=== PATIENT | female | born 1985 | race Caucasian/White ===

== ENCOUNTER 2023-10-22 14:27 | Outpatient (OUT) | payer OTHER, SELFPAY | END 2023-10-22 14:28 | disposition home or self-care (01) | LOC: PST 14:30 | PROVIDERS: PCP Family Medicine; Visit Provider Obstetrics & Gynecology | DX: Z01.818 Encounter for other preprocedural examination (principal); N92.1 Excessive and frequent menstruation with irregular cycle; R10.2 Pelvic and perineal pain ==

== ENCOUNTER 2023-11-05 08:33 | Day surgery (SDC) | payer OTHER, SELFPAY ==
[2023-10-22 14:54] VITALS: BP 111/70; PULSE 69; RESP 16; TEMP 36.4; O2SAT 99; BMI 21.7
[2023-11-05] VITALS (8 sets, daily range): BP systolic 90–120; BP diastolic 50–82; PULSE 60–102; RESP 12–20; TEMP 36.3–36.4; O2SAT 97–100; BMI 23.0
--- OUTSIDE RECORDS SUMMARY | 2023-11-05 08:36 | XMS_ITS | CCD ---
Author Organization [facility] Care Team Providers Care Admissions Clerk Name Role Phone SIMEON DUMONT Referring Unavailab Katya Bright Admitting Unavailable Ambrose Katya Attending Unavailable MAGALIS GARDNER Primary Care Unavailable MAGALIS GARDNER Referring Unavailable Melvin Cote Primary Care Physician CHAD ., DR MCRAE Primary Care Unavailabl e NILL ., DR RODRIGUEZ Admitting Unavailable NILL ., DR RODRIGUEZ Consulting Unavailable NILL ., DR RODRIGUEZ Attending Unavailable BARRETT II, YESY Consulting Unavailable HUE ROMERO Consulting Unavailable KARASIK ., DR MCRAE Attending Unavailabl e KARASIK ., DR MCRAE Admitting Unavailabl e KARASIK ., DR MCRAE Primary Care Unavailabl e KARASIK ., DR MCRAE Consulting Unavailabl e KARASIK ., DR MCRAE Consulting Unavailabl e KARASIK ., DR MCRAE Attending Unavailabl e KARASIK ., DR MCRAE Admitting Unavailabl e KARASIK ., DR MCRAE Primary Care Unavailabl e KARASIK ., DR MCRAE Attending Unavailabl e KARASIK ., DR MCRAE Admitting Unavailabl e KARASIK ., DR MCRAE Primary Care Unavailabl Almas Hernandez Attending Unavailable Almas TENORIO Attending Unavailable Melvin Cote Referring Unavailable Almas TENORIO Attending Unavailable Melvin Cote Referring Unavailable Almas TENORIO Attending Unavailable Melvin Cote MD Primary Care Provider [phone] ALFA LÓPEZ Attending Unavailable ALFA LÓPEZ Attending Unavailable Allergies Allergy Classification Reported Allergen(s) Allergy Type Date of Onset Reaction(s) Facility (1 source) No Known Medication Allergies; Translations: [No Known Medication Allergies] Propensity to adverse reactions (disorder) [facility] Repository Medications Current Medications Medication Drug Class(es) Dates Sig (Normalized) Sig (Original) cyclobenzaprine hydrochloride 10 mg oral tablet (2 sources) Muscle Relaxant Start: 12-02-2022 cyclobenzaprine (Flexeril) 10 MG tablet Start: 11-06-2022 take 1 tablet by yessy th three times daily as needed for muscle spasms cyclobenzaprine 10 mg Tab 10 mg = 1 tab(s), Oral, TID, PRN for spasm, Refills(s) 0 Start Date: 11/06/22 Status: Ordered gabapentin 100 mg oral capsule (2 sources) Anti-epileptic Agent Start: 12-02-2022 take 1 capsule by mouth three times daily gabapentin (Neurontin) 100 MG capsule Take 1 capsule 3 times a day by oral route. 0 12/02/2022 Active Start: 11-06-2022 take 1 capsule by mo uth three times daily gabapentin 100 mg Cap 100 mg = 1 cap(s), Oral, TID, Refills(s) 0 Start Date: 11/06/22 Status: Ordered Lactulose (1 source) Osmotic Laxative Start: 11-06-2022 take 20 g by mouth twice daily lactulose 20 g/30 mL Oral Syrup 20 gm, Oral, BID, Refills(s) 0 Start Date: 11/06/22 Status: Ordered methadone hydrochloride 10 mg oral tablet (2 sources) Opioid Agonist Start: 11-06-2022 methadone 10 m g Tab as directed, Refills(s) 0 Start Date: 11/06/22 Status: Ordered methadone (Dolop christen) 10 MG tablet Take 135 mg by mouth in the morning. 0 Active methylphenidate hydrochloride 5 mg oral tablet (2 sources) Central Nervous System Stimulant Start: 07-28-2023 methylphenidate (Ritalin) 5 MG tablet Start: 11-06-2022 take 1 tablet by yessy th twice daily Ritalin 5 mg oral tablet 5 mg = 1 tab(s), Oral, BID, Refills(s) 0 Start Date: 11/06/22 Status: Ordered Problems Active Problems Problem Classification Problem Date Documented Da te Episodic/Chronic Attention-deficit, conduct, and disruptive behavior disorders (1 source) Attention deficit hyperactivity disorder 11-06-2022 Chronic Cancer of ovary (1 source) Malignant tumor of ovary 11-06-2022 Chronic Cancer of ovary (1 source) Personal history of malignant neoplasm of ovary; Translations: [PERSONAL HX MALIG NEOPLASM OVARY] Onset: 12-22-2022 Episodic Female infertility (2 sources) Female infertility, unspecified; Translations: [Female infertility, unspecified] Onset: 12-19-2018 Chronic Gastrointestinal hemorrhage (6 sources) Hemorrhage of rectum and anus; Translations: [Hemorrhage of anus and rectum] Onset: 11-20-2022 Episodic Menstrual disorders (2 sources) Menometrorrhagia; Translations: [Excessive and frequent menstruation with irregular cycle] Onset: 02-23-2023 09-10-2023 Chronic Other gastrointestinal disorders (2 sources) Other constipation; Translations: [Other constipation] Onset: 11-20-2022 Episodic Other gastrointestinal disorders (1 source) Chronic constipation 11-20-2022 Episodic Other nutritional; endocrine; and metabolic disorders (1 source) Overweight in adulthood with body mass index of 25 or more but less than 30 11-20-2022 Episodic Spondylosis; intervertebral disc disorders; other back problems (1 source) Prolapsed lumbar intervertebral disc 11-06-2022 Chronic Substance-related disorders (1 source) Opioid abuse 11-06-2022 Chronic Past or Other Problems Problem Classification Problem Date Documented Date Episodic/Chronic Administrative/social admission (1 source) Counseling procedure with explicit context; Translations: [Other specified counseling] Onset: 02-23-2023 02-23-2023 Episodic Immunizations and screening for infectious disease (1 source) Encounter for screening for human papillomavirus (HPV); Translations: [ENC SCREENING HUMAN PAPILLOMAVIRUS] Onset: 08-27-2022 Episodic Other screening for suspected conditions (not mental disorders or infectious disease) (8 sources) Encounter for screening for malignant neoplasm of cervix; Translations: [Encounter for screening for diabetes mellitus] Onset: 12-30-2021 Episodic Spondylosis; intervertebral disc disorders; other back problems (1 source) Chronic low back pain Onset: 08-03-2019 11-06-2022 Episodic Results Test Name Value Interpretation Reference Range Facility Pathology Noteon 12-21-2022 Pathology Note [id number] .[id number]:127 Normal [facility] Outside Colonoscopyon 2022 Outside Colonoscopy [id number] .00CD:127 Normal [facility] DRUG SCREEN RAPID (URINE)on 12-16-2022 AMP Negative Normal NEGATIVE [facility] Comment on above: Performed By: #### D RUGRPD #### [facility] [address] [place] [address] Dr. Ruiz Abdul BAR Negative Normal NEGATIVE [facility] Comment on above: Performed By: #### D RUGRPD #### [facility] [address] [place] [address] Dr. uRiz Abdul BUP Negative Normal NEGATIVE [facility] Comment on above: Performed By: #### D RUGRPD #### [facility] [address] [place] [address] Dr. Ruiz Abdul BZO Negative Normal NEGATIVE [facility] Comment on above: Performed By: #### D RUGRPD #### [facility] [address] [place] [address] Dr. Ruiz Abdul MILTON Positive Abnormal NEGATIVE [facility] Comment on above: Performed By: #### D RUGRPD #### [facility] [address] [place] [address] Dr. Ruiz Abdul CUT-OFFS SEE BELOW Normal [facility] Comment on above: Result Comment: AMP (Amphetamine): 500ng/mL, BAR (Barbituates): 200 ng/mL, BZO (Benzodiazepines): 150 ng/mL, BUP (Buprenorphine): 10 ng/mL, MILTON (Cocaine): 150 ng/mL, mAMP (Methamphetamine): 500 ng/mL, MTD (Methadone): 200 ng/mL, OPI (Opiates): 100 ng/mL, OXY (Oxycodone): 100 ng/mL, PCP (Phencyclidine): 25 ng/mL, PPX (Propoxyphene): 300 ng/mL, THC (Cannabinoids): 50 ng/mL, TCA (Trycyclic Antidepressants): 300 ng/mL Performed By: #### D RUGRPD #### [facility] [address] [place] [address] Dr. Ruiz Abdul DRUG CUT HEADER DRUG CLASS TEST SYSTEM CUT-OFF CONCENTRATIONS ARE FOLLOWS: Normal [facility] Comment on above: Performed By: #### D RUGRPD #### [facility] [address] [place] [address] Dr. Ruiz Abdul mAMP Negative Normal NEGATIVE [facility] Comment on above: Performed By: #### D RUGRPD #### [facility] [address] [place] [address] Dr. Ruiz Abdul MTD Positive Abnormal NEGATIVE [facility] Comment on above: Performed By: #### D RUGRPD #### [facility] [address] [place] [address] Dr. Ruiz Abdul OPI Negative Normal NEGATIVE [facility] Comment on above: Performed By: #### D RUGRPD #### [facility] [address] [place] [address] Dr. Ruiz Abdul OXY Negative Normal NEGATIVE [facility] Comment on above: Performed By: #### D RUGRPD #### [facility] [address] [place] [address] Dr. Ruiz Abdul PCP Negative Normal NEGATIVE [facility] Comment on above: Performed By: #### D RUGRPD #### [facility] [address] [place] [address] Dr. Ruiz Abdul PPX Negative Normal NEGATIVE [facility] Comment on above: Performed By: #### D RUGRPD #### [facility] [address] [place] [address] Dr. Ruiz Abdul TCA Negative Normal NEGATIVE [facility] Comment on above: Performed By: #### D RUGRPD #### [facility] [address] [place] [address] Dr. Ruiz Abdul THC Negative Normal NEGATIVE [facility] Comment on above: Performed By: #### D RUGRPD #### [facility] [address] [place] [address] Dr. Ruiz Abdul PREG HCG QUALon 12-16-2022 , QUAL Negative Normal NEGATIVE [facility] Comment on above: Performed By: #### P REG #### [facility] [address] [place] [address] Dr. Ruiz Abdul Consent for Procedure/Surger yon 11-23-2022 Consent for Procedure/Surgery [id number]:127 [facility] Pre-Certification Formon Pre-Certification Form [id number] 1.00CD:127 [facility] Provider Letteron 10-30-2022 Provider Letter October 30, 2022 KATT MORRIS [address] [place] [phone] KATT MORRIS 1985 Dear Katt _ , We have been trying to reach you with no success. It is important that you return our call regarding your referral from Dr. Cote upon receiving this letter. Also, at the time of your call, please provide us with your current information. Thank you for your prompt attention to this matter. Sincerely, General Surgery [place] [phone] [facility] Physician Referralon 023 Physician Referral [id number] .[id number]:127 [facility] PAP ACOG PANEL 2: 30 to 65on 08-31-2022 . . Normal [facility] Comment on above: Result Comment: Perf ormed at: WB Performed By: #### [id number] #### [facility] [address] [place] [address] Dr. Ruiz Abdul Age Gdln ACOG Testing 30-65 Normal [facility] Comment on above: Performed By: #### 4 [id number] #### [facility] [address] [address] [address] Ruiz Abdul DIAGNOSIS: Comment Normal [facility] Comment on above: Result Comment: NEGA TIVE FOR INTRAEPITHELIAL LESION OR MALIGNANCY. Performed at: WB Performed By: #### 4 [id number] #### [facility] [address] [place] [address] Dr. Ruiz Abdul HPV Aptima Negative Normal Negative [facility] Comment on above: Result Comment: This nucleic acid amplification test detects fourteen high-risk HPV types (16,18,31,33,35,39,45,51,52,56,58,59,66,68) without differentiation. Performed at: =G Performed By: #### 4 [id number] #### [facility] [address] [place] [address] Dr. Ruiz Abdul HPV Genotype Reflex Comment Normal [facility] Comment on above: Result Comment: Crit erkaryna not met, HPV Genotype not performed. Performed at: WB Performed By: #### 4 [id number] #### [facility] [address] [place] [address] Dr. Ruiz Abdul Methodology: Comment Normal [facility] Comment on above: Result Comment: This liquid based ThinPrep(R) pap test was screened with the use of an image guided system. Performed at: WB Performed By: #### 4 [id number] #### [facility] [address] [place] [address] Dr. Ruiz Abdul Note: Comment Normal [facility] Comment on above: Result Comment: The Pap smear is a screening test designed to aid in the detection of premalignant and malignant conditions of the uterine cervix. It is not a diagnostic procedure and should not be used as the sole means of detecting cervical cancer. Both false-positive and false-negative reports do occur. . Performed at: WB Performed By: #### [id number] #### [facility] [address] [place] [address] Dr. Ruiz Abdul Performed by: Comment Normal [facility] Comment on above: Result Comment: Cindi Suggs, Capper Machine Operator (ASCP) Performed at: WB Performed By: #### 4 [id number] #### [facility] [address] [place] [address] Dr. Ruiz Abdul Specimen adequacy: Comment Normal [facility] Comment on above: Result Comment: Sati sfactory for evaluation. Endocervical and/or squamous metaplastic cells (endocervical component) are present. Performed at: WB Performed By: #### 4 [id number] #### [facility] [address] [place] [address] Dr. Ruiz Abdul Cytology Cervical or vaginal smear or scraping studyon 08-26-2022 [facility] - 1HRon 12-30-2021 Glucose [Mass/Vol] 140 mg/dL Critically high 74-106 [facility] Comment on above: Performed By: #### G [id number] #### [facility] [address] [place] [address] Dr. Ruiz Abdul HEMOGRAM AND PLATELon 2021 Hematocrit (Bld) [Volume fraction] 29.2 % Critically low 36.0-48.0 [facility] Comment on above: Performed By: #### H H #### [facility] [address] [place] [address] Dr. Ruiz Abdul Hemoglobin (Bld) [Mass/Vol] 8.9 g/dL Critically low 12.0-16.0 [facility] Comment on above: Performed By: #### H H #### [facility] [address] [place] [address] Dr. Ruiz Abdul MCH (RBC) [Entitic mass] 21.5 pg Critically low 26.7-34.0 [facility] Comment on above: Performed By: #### H H #### [facility] [address] [place] [address] Dr. Ruiz Abdul MCHC (RBC) [Mass/Vol] 30.5 g/dL Normal 29.9-35.2 [facility] Comment on above: Performed By: #### H H #### [facility] [address] [place] [address] Dr. Ruiz Abdul MCV (RBC) [Entitic vol] 70.7 fL Critically low 81.0-99.0 [facility] Comment on above: Performed By: #### H H #### [facility] [address] [place] [address] Dr. Ruiz Abdul PLT 230 103/ul Normal 150-450 [facility] Comment on above: Performed By: #### H H #### [facility] [address] [place] [address] Dr. Ruiz Abdul RBC 4.13 106/ul Critically low 4.20-5.40 [facility] Comment on above: Performed By: #### H H #### [facility] [address] [place] [address] Dr. Ruiz Abdul WBC 11.1 103/ul Critically high 4.0-11.0 [facility] Comment on above: Performed By: #### H H #### [facility] [id number] Ruiz Abdul CT LUMBAR SPINE W CONTRASTon 12-30-2020 CT LUMBAR SPINE W CONTRAST [facility] Department of Radiology [address] [place] [address] Patient Name: KATT MORRIS : 1985 Sex: F Age: Race: White Pt. Location: Patient Status: O Ordered Date: 12/04/2020 3:05:00 PM Completed Date: 12/30/2020 02:41 PM Requesting Provider: KATYA BOGGS Attending Provider: KATYA BOGGS Report Copy To: MAGALIS GARDNER Signs & Symptoms: M51.16 Intervertebral disc disorders w radiculopathy, lumbar region I10 History: [facility] auth [id number] valid 12/10/20-01/24/21 [place] [id number]/m51.16 jy Comments: Exam: CT LUMBAR SPINE W CONTRAST CT LUMBAR SPINE W CONTRAST 12/30/2020 2:41 PM CLINICAL INDICATIONS: M51.16 Intervertebral disc disorders w radiculopathy, lumbar region I10 TECHNOLOGIST COMMENTS: H/o lumbar fusion, last fusion 2013. C/o LBP down bilateral lower extremities. QUESTION FOR RADIOLOGIST: PROTOCOL: Multi detector CT of the lumbar spine conducted and reformatted into multiplanar images after intrathecal administration of contrast. Contrast: See myelogram COMPARISON: No prior FINDINGS: Alignment: Normal Disc spaces: Posterior and interbody fusion L5-S1 Facets: Facet alignment is normal. Suspect mild facet degenerative changes above the fusion at L4-L5 T12-L1: No canal stenosis or foraminal narrowing L1-L2: No canal stenosis or foraminal narrowing L2-L3: No significant canal stenosis or foraminal narrowing small posterior disc bulge. L3-L4: Small posterior disc bulge plus facet and ligamentous hypertrophy. Mild canal stenosis with recess stenosis. No foraminal narrowing. L4-L5: Posterior broad-based disc bulge plus facet and ligamentous hypertrophy. Severe canal stenosis. Moderate bilateral foraminal narrowing. L5-S1: Posterior fusion: No canal stenosis. No foraminal narrowing. IMPRESSION: 1. L3-L4: Small posterior disc bulge plus facet and ligamentous hypertrophy. Mild canal stenosis with recess stenosis. No foraminal narrowing. 2. L4-L5: Posterior broad-based disc bulge plus facet and ligamentous hypertrophy. Severe canal stenosis. Moderate bilateral foraminal narrowing. All CT scans at this facility use dose modulation iterative reconstruction and or weight balanced dosing when appropriate to reduce radiation dose to as low as reasonably achievable Electronically signed: Navneet Toro. Transcribed by: [email or web address], User Resident: Electronically Signed by: NAVNEET TORO @ 12/30/2020 03:24 PM Normal [facility] LUMBAR MYELOGRAMon LUMBAR MYELOGRAM [facility] Department of Radiology [address] [place] [id number] Patient Name: KATT MORRIS : 1985 Sex: F Age: Race: White Pt. Location: Patient Status: O Ordered Date: 12/04/2020 3:05:00 PM Completed Date: 12/30/2020 02:00 PM Requesting Provider: KATYA BOGGS Attending Provider: KATYA BOGGS Report Copy To: MAGALIS GARDNER Signs & Symptoms: M51.16 Intervertebral disc disorders w radiculopathy, lumbar region I10 History: Comments: Evaluate Exam: LUMBAR MYELOGRAM FLUOROSCOPIC LUMBAR MYELOGRAM CLINICAL INFORMATION: Chronic lower back pain with radiculopathy. Pre-CT myelogram. Local anesthetic: lidocaine 1% x3 mL. Intrathecal contrast: Omnipaque-180 x10 mL. Fluoro time: 23 seconds. Images: 3 spot, 3 stored fluoroscopic. PROCEDURE Risk benefit analysis was discussed with the patient, who then consented to the procedure. A timeout was performed with all staff present in agreement at its conclusion. The procedural site was cleaned then draped in the usual sterile fashion, after which local anesthesia was achieved. A 22 gauge needle was advanced into the spinal canal between L3-L4 via sublaminar approach. There was immediate return of blood-tinged fluid. Intrathecal contrast was injected, and the needle was removed. Hemostasis was achieved and a sterile bandage was applied to the site. There were no immediate complications; and specifically there was no extravasation of intrathecal contrast on postprocedural images. The cosigning attending physician was present for the critical or carvalho portions of the exam. IMPRESSION: * Successful pre-CT myelogram. Approved by:Francisco Lowry12/30/2020 2:12 PM. I, Navneet Toro,have reviewed the images and reports Electronically signed: Navneet Toro. Transcribed by: [email or web address], User Resident: FRANCISCO BARGER Electronically Signed by: NAVNEET TORO @ 12/30/2020 04:28 PM I personally read this/these film(s) with this resident Normal [facility] Comment on above: Order Comment: Evalu ate LUMBAR SPINE 4 OR 5 [facility] LUMBAR SPINE 4 OR 5 VWS [facility] Department of Radiology [address] [place] [id number] Patient Name: KATT MORRIS : 1985 Sex: F Age: Race: White Pt. Location: Patient Status: O Ordered Date: 11/21/2020 10:35:00 AM Completed Date: 11/21/2020 10:33 AM Requesting Provider: KATYA BOGGS Attending Provider: KATYA BOGGS Report Copy To: Signs & Symptoms: M54.5 Low back pain I10 History: [place] Comments: Evaluate Exam: LUMBAR SPINE 4 OR 5 [facility] LUMBAR SPINE 4 OR 5 [facility] 11/21/2020 10:33 AM CLINICAL INDICATIONS: M54.5 Low back pain I10 TECHNOLOGIST COMMENTS: Patient has lower back pain. Lumbar spine surgery 2014 QUESTION FOR RADIOLOGIST: Evaluate PROTOCOL: AP,Lateral,L5-S1 spot,Flexion and Extension views were obtained. COMPARISON: November 19, 2013. FINDINGS: Hardware identified at the lumbosacral junction. Appropriate alignment. Osseous bridging has occurred across the disc L5-S1 space. No loss of vertebral body height. No instability noted between flexion and extension although there is some limited range of motion. IMPRESSION: Interval disc space bridging at L5-S1 with hardware fusion appearing intact but no instability. Electronically signed: Kameron Reyna. Transcribed by: [email or web address], User Resident: Electronically Signed by: KAMERON REYNA @ 11/21/2020 02:30 PM Normal [facility] Comment on above: Order Comment: Evalu ate Progesteroneon 12-20-2018 Protein mass conc 27.90 ng/mL Normal [facility] Comment on above: Result Comment: FEMALE (healthy): Follicular phase 0.06-0.89 Ovulation phase 0.12-12.00 Luteal phase 1.83-23.90 Postmenopausal <0.13 Performed By: #### P STEVEN #### [facility] [address] [place], [place] [id number] Supervisor Finishing Department: Rick Ng MD Vital Signs Date Time Vital Sign Value Performing Clinician Facility 09-14-2023 14:28-0500 Body mass index (BMI) [Ratio] 21.93 kg/m2 [employer] Work Phone: [facility] 09-14-2023 14:28-0500 Body weight 63.5 kg [employer] Phone: [facility] 09-14-2023 14:28-0500 Diastolic blood pressure 72 mm[Hg] [employer] Work Phone: [facility] 09-14-2023 14:28-0500 Systolic blood pressure 106 mm[Hg] [employer] Work Phone: [facility] 11-20-2022 14:06-0400 Blood Pressure Location Almas GURPREETL [facility] 11-20-2022 14:06-0400 Diastolic blood pressure 76 mm[Hg] Almas VÁZQUEZL [facility] 11-20-2022 14:06-0400 Heart rate 70 /min Almas VÁZQUEZL [facility] 11-20-2022 14:06-0400 Respiratory rate 16 /min Almas VÁZQUEZL [facility] 11-20-2022 14:06-0400 Systolic blood pressure 124 mm[Hg] Almas VÁZQUEZL [facility] [place] Encounters Encounter Date Encounter Type Care Provider Facility Start: 10-13-2023 End: 10-13-2023 ambulatory ALFA JONESZIO Not Available Start: 09-14-2023 End: 09-14-2023 ambulatory ALFA MARIBEL Not Available Start: 09-14-2023 End: 09-14-2023 Office outpatient visit 15 minutes Alfa Agostoo DO Work Phone: [facility] Comment on above: Menorrhagia with irr egular cycle Start: 12-30-2022 ambulatory Almas TENORIO Facility : [facility] Start: 12-16-2022 End: 12-17-[address] CLEMENTINA BONILLA . Facility: Start: 11-20-2022 End: 11-21-2022 ambulatory Almas TENORIO Facility: [facility] Start: 11-20-2022 End: 11-20-2022 Patient encounter procedure Almas TENORIO General Surgery [facility] Start: 10-23-2022 [facility]ulatory [facility]: 09-21-[address] CLEMENTINA BONILLA . Fa cility:[facility] Start: 08-26-2022 End: 08-26-[address] CLEMENTINA BONILLA . Facility: Start: 12-30-2021 End: 12-31-[address] CLEMENTINA BONILLA . Facility: Start: 12-30-2020 End: 12-31-2020 ambulatory Katya Boggs Facility:[facility] Start: 12-19-2018 End: 12-20-2018 Patient encounter procedure SIMEON ANGULO JULIA [facility] Center Procedures Date Procedure Procedure Detail Performing Clinician Start: 08-26-2022 Cytp cerv/vag auto t hin layer prep mnl screen Gabbie CUELLAR Work Phone: Start: 12-19-2018 Assay of progesterone S JASON DUMONT section Almas NIL L section Almas NIL L Excision of lumbar intervertebral disc Almas NILL Laparoscopy Almas NILL Laparoscopy Almas NILL Lumbar spinal fusion Almas TONO Salpingo-oophorectomy [place] TONO Plan of Treatment Date Care Activity Detail Author Start: 11-24-2023 End: 11-24-2023 Patient encounter procedure 11/24/2023 3:40 PM EDT Office Visit [facility] [address] [place] [address] Alfa López, DO [address] [place] [address] [facility] Start: 10-13-2023 End: 10-13-2023 Patient encounter procedure 10/13/2023 3:50 PM EST Consult [facility] [address] [place] [address] Alfa López, DO [address] [place] [address] [facility] Immunizations Immunization Date Immunization Notes Care Provider Fa cility NEGATED: Highlighted row has not occurred!11-20-2022 influenza virus vaccine, unspecified formulation Almas TENORIO [facility] [place] NEGATED: Highlighted row has not occurred!11-20-2022 SARS-CoV-2 mRNA (tozinameran 5y-11y) vaccine Almas TENORIO [facility] [place] Payers Date Payer Category Payer Medicaid [employer] [place] [employer] [id number] 2023-Present [address] [place] [address] [id number] 2019 Private Health Insurance [id number] 2018 Unknown [id number] 1983 Unknown [id number] [id number]. 173 1983 Unknown [id number] 2.16.840.1.252139.3.579.2. 647 1983 Unknown [id number] 2.16.840.1.753898.3.579.2. 593 1983 Unknown [id number] 2.16.840.1.650822.3.579.2. 593 1983 Unknown [id number] 2.16.840.1.450357.3.579.2. 593 1983 Unknown [id number] 2.16.840.1.787877.3.579.2. 593 1983 Unknown [id number] 2.16.840.1.666205.3.579.2. 727 1983 Unknown [id number] 2.16.840.1.206799.3.579.2. 727 1983 Unknown [id number] 2.16.840.1.206639.3.579.2. 727 1983 Unknown [id number] 2.16.840.1.178875.3.579.2. 727 1983 Unknown [id number] 2.16.840.1.494594.3.579.2. 1259 1983 Unknown [id number] 2.16.840.1.234663.3.579.2. 1259 1959 Unknown [id number] Social History Date Type Detail Facility Start: 11-20-2022 Tobacco smoking status Light t obacco smoker (finding) [facility] [place] Tobacco smoking status Never [facility] Start: 02-22-2023 Sex Assigned At Female F [facility] Start: 02-22-2023 Tobacco smoking stat NHIS Smokes tobacco daily [facility] History of tobacco use Cigarette Smoker [facility] Start: 09-10-2023 Alcohol intake Lifetime non-d jordan (finding) [facility] Start: 02-22-2023 History of Social function [facility] Start: 02-22-2023 Tobacco Comment *current smoker [facility] Start: 1985 Sex Assigned At Not on file [facility] Functional Status Date Assessment Result Facility 11-20-2022 Functional Status N/A [facility] History of Present illness Narrative 09-14-2023 Cynthia Grant, ASSISTANT PRESS OPERATOR - 09/14/2023 1:40 PM EST Note Date & Type Note Facility 09-14-2023 History of Presen t illness Narrative Reason for Appointment: Patient ID: Katt Morris is a 38 y.o. female who presents for Menorrhagia Patient presents today for Acute Visit appointment. Current Medications: has a current medication list which includes the following prescription(s): cyclobenzaprine, gabapentin, methylphenidate, and methadone. Medical History: Active Ambulatory Problems Diagnosis Date Noted Menorrhagia 02/23/2023 Encounter to discuss procedure 02/23/2023 Resolved Ambulatory Problems Diagnosis Date Noted No Resolved Ambulatory Problems Past Medical History: Diagnosis Date Anemia Chronic back pain Marijuana use Methadone use Renal agenesis No family history on file. Social History Tobacco Use Smoking status: Every Day Types: Cigarettes Smokeless tobacco: Not on file Tobacco comments: *current smoker Substance Use Topics Alcohol use: Never Drug use: Yes Types: Marijuana Comment: medical marijuana card Past Surgical History: Procedure Laterality Date SECTION, LOW TRANSVERSE PAP SMEAR 03/2019 SALPINGOOPHORECTOMY Right SPINAL FUSION No Known Allergies Review of Systems: Review of Systems Constitutional: Negative. HENT: Negative. Eyes: Negative. Respiratory: Negative. Cardiovascular: Negative. Gastrointestinal: Negative. Genitourinary: Positive for menstrual problem. Musculoskeletal: Negative. Skin: Negative. Neurological: Negative. All other systems reviewed and are negative. Hematological: Negative. Endocrine: Negative. Allergic/Immunologic: Negative. Objective Physical Exam Constitutional: Appearance: Normal appearance. She is well-developed. Cardiovascular: Rate and Rhythm: Normal rate and regular rhythm. Pulmonary: Effort: Pulmonary effort is normal. Breath sounds: Normal breath sounds. Abdominal: General: Bowel sounds are normal. There is no distension. Palpations: Abdomen is soft. Tenderness: There is no abdominal tenderness. There is no guarding or rebound. Musculoskeletal: General: No swelling. Normal range of motion. Right lower leg: No edema. Left lower leg: No edema. Neurological: Mental Status: She is alert and oriented to person, place, and time. Skin: General: Skin is warm and dry. Psychiatric: Mood and Affect: Mood normal. Behavior: Behavior normal. Vitals and nursing note reviewed. Exam conducted with a cigarette making machine hopper feeder present. Vitals: Estimated body mass index is 21.93 kg/m as calculated from the following: Height as of 08/26/22: 5' 7 . Weight as of this encounter: 140 lb. BP: 106/72 No LMP recorded. Assessment/Plan Encounter Diagnosis Name Primary? Menorrhagia with irregular cycle Pt presents with complaints of heavy cycles. Pt has had 5 sections. Pt has had tubal. Pt desires surgical management. Pt needs dx lap with poss SONJA and FOE to view scar tissue and d&c hysteroscopy. Pt will have hysterectomy via robot. Pt to return for preop exam. Documented by Cynthia Grant LPN on behalf of: Alfa López DO documented in this encounter [facility] Clinical Note 12-16-2022 Note Date & Type Note Facility 12-16-2022 Note OPERATIVE NOTE OPERATION DATE: 12/16/2022 PREOPERATIVE DIAGNOSIS: Intermittent rectal bleeding. POSTOPERATIVE DIAGNOSIS: Mild sigmoid inflammation. PROCEDURE: Colonoscopy to cecum with biopsy of sigmoid colon. SURGEON: Almas Tenorio M.D. ANESTHESIA: Monitored anesthesia care. ESTIMATED BLOOD LOSS: Less than 1 mL. INDICATIONS AND CONSENT: Patient is a 37-year-old female with history of intermittent rectal bleeding. Indications, risks, benefits, alternatives of proceeding with colonoscopy were explained extensively to the patient, including the risks of bleeding, colon perforation or anesthetic complications. All of her questions were answered. Informed consent was obtained. PROCEDURE: Patient brought to the operating room, placed in the left lateral decubitus position. Monitored anesthesia care was provided. Rectal exam was performed which showed no masses or blood. The scope was inserted into the anal canal. Under direct visualization was advanced. With the aid of abdominal compression, it was advanced to the cecum where cecal markings were clearly identified. There was noted to be a fair prep with some liquid and semi-solid stool that was partially irrigated clear. Upon withdrawal of the scope, mucosal surfaces were carefully examined. There were no mass lesions or polyps. No significant diverticulosis. Within the sigmoid, there was noted to be some mild inflammation without ulceration or bleeding. Biopsy was obtained with cold biopsy forceps with good hemostasis. Within the rectum, there was no significant hemorrhoidal disease. There were some anal skin tags and decreased rectal tone. The scope was then withdrawn. Patient tolerated procedure well, was sent to recovery room in good condition. CC: Patient's family physician [facility] Clinical Note 11-20-2022 Note Date & Type Note Facility 11-20-2022 Note Chief Complaint consultation for chronic constipation and blood/mucus in stools HPI Staff 37 year old female presents on consultation from Dr. Cote for constipation and blood and mucus in stool. Reports she's had constipation approximately 10 years. Blood and mucus started approximately 1.5 months ago. She notes blood and mucus on stool and toilet tissue. She denies rectal pain. No abdominal pain unless she strains excessively. Denies nausea, vomiting or weight loss. 10/23-prescribed Lactulose. This has improved constipation but continues to experience pellet like stool and feeling of incomplete emptying. History of Present Illness 37 yo female with h/o chronic back pain, h/o opioid abuse, on Methadone, ADHD, referred for chronic constipation and rectal bleeding; lifelong constipation, worsened over last several months, bms less than once per week; some improvement with Lactulose, then began having rectal bleeding intermittently with bms, red blood with wiping and on outside of stools, no melena or hematochezia, no abd pain; no N/V; no previous colonoscopy; abd operations significant for x 5; laparoscopy x 2; salpingo-oophorectomy; no asa or NSAID use, no SBE prophylaxis; no fmhx of GI malignancy or IBD; smokes daily. Review of Systems PHQ Score Initial Depression Screen Score: 0 ROS - Provider Constitutional: no fever, no sweats, no weight loss. Eyes: no glasses, no blurred vision, no visual loss. ENMT: no dentures, no hoarseness, no swallowing difficulties, no hearing loss, no ear infection(s), no nose bleeds. Cardiovascular: normal blood pressure, no chest pain, regular heartbeat, no heart murmur. Respiratory: no shortness of breath, no cough, no asthma, no wheezing. Gastrointestinal: no nausea, no vomiting, no diarrhea, no constipation, no blood in stool, no change in bowel habits, no abdominal pain, no hepatitis. Genitourinary: no kidney stones, no urine infection, no dysuria. Musculoskeletal: no pain, no weakness. Skin: no changing moles, no rash, no skin lumps. Neurologic: no seizures, no epilepsy, no headache. Psychiatric: no emotional or psychiatric problem. Heme/Lymph: no bleeding problems, no anemia, no blood clots, no transfusions. Allergy/Immunologic: no swollen lymph nodes/glands, no IV drug abuse. Other: Additional ROS info: Except as noted in the above Review of Systems and in the History of Present Illness, all other systems have been reviewed and are negative or noncontributory. Physical Exam Vitals & Measurements HR: 70(Peripheral) RR: 16 BP: 124/76 HT: 67 in HT: 170.1 cm WT: 80.4 kg WT: 176.88 lb BMI: 27.79 HEENT: normal conjunctiva, sclera clear, no scleral icterus, EOM intact, PERRLA, oral mucosa moist without lesions. Neck: trachea midline, no mass, symmetric, no thyromegaly or nodules, no adenopathy Respiratory: lungs CTA, respirations non labored. Cardiovascular: regular rate and rhythm, no murmur, no pedal edema or varicosities. Gastrointestinal: soft, non distended, no tenderness, no masses, no palpable hernias, diastasis recti no, no hepatosplenomegaly; normal bs Lymphatic: no cervical adenopathy, no supraclavicular adenopathy Musculoskeletal: normal gait, digits and nails without infection, nodes, cyanosis, clubbing. Skin: no rashes, no lesions, no ulcers, no subcutaneous nodules, induration. Psychiatric/Neuro: oriented to time, place, person, judgement normal, affect appropriate for age, insight intact, no focal deficits. Tests: review of old records completed, Discussed surgical options, risks, and possible complications with patient. Assessment/Plan 1. Chronic constipation (K59.09: Other constipation) plan colonoscopy under anesthesia, informed consent obtained. 2. Rectal bleeding (K62.5: Hemorrhage of anus and rectum) see # 1 Follow-up No qualifying data available Problem List/Past Medical History Ongoing ADHD BMI 27.0-27.9,adult Chronic constipation Chronic low back pain Opioid abuse Ovarian cancer Protruded lumbar disc Rectal bleeding Historical No qualifying data Procedure/Surgical History section, section, section, section, section, Laparoscopy, Laparoscopy, Lumbar discectomy, Lumbar spinal fusion, Salpingo-oophorectomy. Medications cyclobenzaprine 10 mg Tab, 10 mg= 1 tab(s), Oral, TID, PRN gabapentin 100 mg Cap, 100 mg= 1 cap(s), Oral, TID lactulose 20 g/30 mL Oral Syrup, 20 gm, Oral, BID methadone 10 mg Tab Ritalin 5 mg oral tablet, 5 mg= 1 tab(s), Oral, BID Allergies No Known Allergies No Known Medication Allergies Social History Alcohol - Denies Alcohol Use, 11/20/2022 Substance Abuse Current, Marijuana, 1-2 times per week, 11/20/2022 Tobacco 5-9 cigarettes (between 1/4 to 1/2 pack)/day in last 30 days Tobacco Use:. Never Smokeless Tobacco Use:. Cigarettes, 0.24 per day. Started age 15.0 Years. Yes, 11/20/2022 Family History Hypertension: Mother. Immunizations (more content not included)... [facility] Comment on above: Result Comment: Elec tronically Signed By: TONO BUENO, Almas Diaz\.marlin\Date and Time Signed: 11/20/22 14:48 EDT Evaluation + Plan note Note Date & Type Note Facility Evaluation + Plan note No data available for this section [facility] [place] Evaluation note Note Date & Type Note Facility Evaluation note Diagnosis Menorrhagia with irregular cycle documented in this encounter [facility] Discharge instructions Note Date & Type Note Facility Hospital Discharge instructions No data available for this section [facility] [place] Progress note Note Date & Type Note Facility Progress note No data available for this section [facility] [place] Summary Purpose Family History No Family History Records FoundNo Family History Records FoundNo Family History Records FoundNo Family History Records FoundNo Family History Records Found Advance Directives No Advanced Directives Records FoundNo Advanced Directives Records FoundNo Advanced Directives Records FoundNo Advanced Directives Records FoundNo Advanced Directives Records Found Additional Source Comments INFORMATION SOURCE (unrecogn ized section and content) DATE CREATED AUTHOR 01/03/2019 [facility] DATE CREATED AUTHOR AUTHOR'S ORGANIZ ATION 04/25/2021 [facility] DATE CREATED AUTHOR AUTHOR'S ORGANIZ ATION 12/23/2022 [facility] DATE CREATED AUTHOR AUTHOR'S ORGANIZ ATION 12/24/2022 Magdy Baltazar [facility] DATE CREATED AUTHOR AUTHOR'S ORGANIZ ATION 10/16/2023 [facility] EPIC Patient Care team informatio n (unrecognized section and content) Admissions Clerk Relationship Specialty Start Date End Date Melvin Cote MD [address] [place] [address] PCP - General Family Medicine 09/14/23 Reason for Visit (unrecogniz ed section and content) Reason Comments Menorrhagia FOR RECORDS PERTAINING TO PATIENTS WHO ARE OR HAVE BEEN ENROLLED IN A CHEMICAL DEPENDENCY/SUBSTANCEABUSE PROGRAM, SOME INFORMATION MAY BE OMITTED. This clinical summary was aggregated from multiple sources. Caution should be exercised in using it in the provision of clinical care. This summary normalizes information from multiple sources, and as a consequence, information in this document may materially change the coding, format and clinical context of patient data. In addition, data may be omitted in some cases. CLINICAL DECISIONS SHOULD BE BASED ON THE PRIMARY CLINICAL RECORDS. [employer] provides no warranty or guarantee of the accuracy or completeness of information in this document.
[2023-11-05 08:48] LABS: Hematocrit 28.8 % (36.0-48.0); Hemoglobin 7.8 g/dL (12.0-16.0); Mean Corpuscular HGB Conc 27.1 g/dL (29.9-35.2); Mean Corpuscular Hemoglobin 16.3 pg (26.7-34.0); Mean Corpuscular Volume 60.1 fL (81.0-99.0); Platelet Count 395 10^3/uL (150-450); Red Blood Count 4.79 10^6/uL (4.20-5.40); Red Cell Distribution Width 25.2 % (11.0-15.0); White Blood Count 8.5 10^3/uL (4.0-11.0)
[2023-11-05 09:01] LABS: Amphetamine Screen Urine NEGATIVE (NEGATIVE); Barbiturates Screen Urine NEGATIVE (NEGATIVE); Benzodiazepines Screen Urine NEGATIVE (NEGATIVE); Buprenorphine Screen Urine NEGATIVE (NEGATIVE); Cannabinoid Screen Urine NEGATIVE (NEGATIVE); Cocaine Screen Urine NEGATIVE (NEGATIVE); Methadone Screen Urine NEGATIVE (NEGATIVE); Methamphetamines Screen Urine NEGATIVE (NEGATIVE); Opiate Screen Urine NEGATIVE (NEGATIVE); Oxycodone Screen Urine NEGATIVE (NEGATIVE); Phencyclidine Screen Urine NEGATIVE (NEGATIVE); Tricyclic Antidepressant Urine NEGATIVE (NEGATIVE)
[2023-11-05] MEDS: LACTATED RINGER'S SOLUTION 1,000 ML 50 ML IV ×2 (09:07→11:23)
[2023-11-05 09:15] LABS: HCG Quantitative <1 mIU/mL
[2023-11-05 09:22] LABS: Eosinophils Absolute Manual 0.34 10^3/uL (0.00-0.70); Lymphocytes Absolute Manual 4.33 10^3/uL (1.20-3.80); Monocytes Absolute Manual 0.68 10^3/uL (0.30-0.80); Segmented Neut Absolute Manual 3.14 10^3/uL (1.4-6.5)
[2023-11-05 09:23] LABS: Anisocytosis 2+; Hypochromasia 2+; Microcytosis 3+; Poikilocytosis 1+
[2023-11-05] MEDS: METOCLOPRAMIDE HCL 10 MG/2 ML VIAL IVP (10:37)
--- NOTE | 2023-11-05 12:48 | PM.ONB ---
Brief Operative Note Date of procedure: 11/05/23 Pre-op diagnosis: pelvic pain, menorrhagia, dysmenorrhea Post-op diagnosis: other (lt hydrosalpingx) Anesthesia: KALPANA Surgeon: Mike Lóepz Manager Purchasing: Sandrine Bustillo Estimated blood loss (mL): 5 Pathology: other (tube) Condition: stable Disposition: PACU Urinary Catheter Management Urinary Catheter Management Urethral: Cath placed during this visit: no
--- NOTE | 2023-11-05 13:20 | PC.NURSE ---
Peripad changed for scant amount red drainage
--- NOTE | 2023-11-05 13:56 | PC.NURSE ---
medium amount of urine
== END 2023-11-05 13:58 | disposition home or self-care (01) ==
PROVIDERS: PCP Family Medicine; Visit Provider Obstetrics & Gynecology
PROC: (CPT 840; principal; 2023-11-05 09:50)
DX: N92.1 Excessive and frequent menstruation with irregular cycle (principal); R10.2 Pelvic and perineal pain; F17.210 Nicotine dependence, cigarettes, uncomplicated
CPT/HCPCS: 58558; 58661; 36415; 80307; 84702; 85007; 85027; 88305; 99999